=== PATIENT | male | born 1935 | race American Indian/Alaskan Native ===

== ENCOUNTER 2017-06-11 11:43 | Day surgery (SDC) | payer MEDICARE ==
[2017-06-11 13:14] LABS: Basophils % (Auto) 0.8 % (0.0-1.8); Eosinophils % (Auto) 3.3 % (0.0-4.3); Hematocrit 37.6 % (35.5-45.6); Hemoglobin 12.6 gm/dl (11.8-15.2); Mean Corpuscular HGB Conc 34 % (32-34); Mean Corpuscular Hemoglobin 34 pg (28-32); Mean Corpuscular Volume 101 fl (84-94); Platelet Count 152 K/mm3 (140-440); Red Blood Count 3.71 M/mm3 (3.65-5.03); Red Cell Distribution Width 13.9 % (13.2-15.2); White Blood Count 5.3 K/mm3 (4.5-11.0)
[2017-06-11 13:26] LABS: INR 1.15 (0.87-1.13)
[2017-06-11 13:27] LABS: Partial Thromboplastin Time 34.1 Sec. (24.2-36.6)
[2017-06-11 14:13] LABS: Anion Gap 18 mmol/L; Blood Urea Nitrogen 14 mg/dL (9-20); Calcium 9.3 mg/dL (8.4-10.2); Carbon Dioxide 28 mmol/L (22-30); Chloride 101.6 mmol/L (98-107); Glucose 94 mg/dL (75-100); Potassium 3.5 mmol/L (3.6-5.0); Sodium 144 mmol/L (137-145)
--- NOTE | 2017-06-11 14:54 | Short Stay Summary ---
Short Stay Documentation Date of service: 06/11/17 - History H&P: obtained from office - Allergies and Medications Current Medications: Allergies No Known Allergies Allergy (Unverified 05/26/15 16:34) Home Medications Medication Instructions Recorded Confirmed Last Taken Type Acyclovir [Zovirax Tab] 800 mg PO QDAY 05/26/15 06/11/17 06/10/17 History AtorvaSTATin [Lipitor] 80 mg PO QHS 05/26/15 06/11/17 06/10/17 History Carvedilol [Coreg] 12.5 mg PO BID 05/26/15 06/11/17 06/10/17 History Donepezil HCl 5 mg PO QHS 05/26/15 06/11/17 06/10/17 History Ergocalciferol (Vitamin D2) 50,000 unit PO QWEEK 05/26/15 06/11/17 06/06/17 History [Vitamin D2] Memantine HCl [Namenda Xr] 20 mg PO BID 05/26/15 06/11/17 06/10/17 History Ranitidine HCl [Zantac 150 MG TAB] 150 mg PO BID 05/26/15 06/11/17 06/10/17 History Aspirin EC [Aspirin Enteric Coated 81 mg PO QDAY #30 tablet.dr 05/27/1506/10/17 Rx TAB] Allopurinol 100 mg PO QDAY 06/11/17 06/11/17 06/10/17 History Clopidogrel Bisulfate [Plavix] 75 mg PO QDAY 06/11/17 06/11/17 06/10/17 History Furosemide [Lasix TAB] 20 mg PO QDAY 06/11/17 06/11/17 06/10/17 History ISOSORBIDE MONOnitrate 120 mg PO QDAY 06/11/17 06/11/17 06/10/17 History Losartan [Cozaar] 50 mg PO BID 06/11/17 06/11/17 06/10/17 History - Brief post op/procedure progress note Date of procedure: 06/11/17 Pre-op diagnosis: CMP Post-op diagnosis: same Procedure: RUE venogram - see report Anesthesia: local Estimated blood loss: none Condition: stable - Disposition Condition at discharge: Stable Disposition: DC-01 TO HOME OR SELFCARE - Discharge Diagnoses (1) Cardiomyopathy Status: Chronic Qualifiers: Cardiomyopathy type: C (2) History of cardiac pacemaker in situ Status: Chronic (3) Nonsustained ventricular tachycardia Status: Acute (4) CAD (coronary artery disease) Status: Chronic Qualifiers: Coronary Disease-Associated Artery/Lesion type: C [place] vs. transplanted heart: N Associated angina: A (5) HLD (hyperlipidemia) Status: Chronic Qualifiers: Hyperlipidemia type: H (6) HTN (hypertension) Status: Chronic Qualifiers: Hypertension type: H Short Stay Discharge Plan Activity: advance as tolerated Diet: low fat, low cholesterol, low salt Wound: open to air, keep clean and dry Follow up with: STEFANI WILKINSON MD [Staff Physician] - 7 Days
[2017-06-11 15:13] VITALS: BP 141/79
--- NOTE | 2017-06-11 20:50 | Cardiac Catherization Report ---
label paster procedure. TYPE OF PROCEDURE: Right upper extremity venogram. DESCRIPTION OF PROCEDURE: The patient was brought to the tender labor. A 5 mL of contrast was given to the patient in the right upper extremity. 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 Contrast solution was noted to go retrograde through the right internal jugular. There was no obvious contrast solution noted in the right atrium. COMPLICATIONS: None. ESTIMATED BLOOD LOSS: None. 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 There is a dual chamber permanent pacemaker currently in place. JOB# [id number] MMW/NTS
== END 2017-06-11 15:20 | disposition home or self-care (01) ==
LOC: CATHLABREC 11:43
PROVIDERS: ATTEND Internal Medicine Cardiovascular Disease
DX: I82.890 Acute embolism and thrombosis of other specified veins (principal); I25.10 Atherosclerotic heart disease of native coronary artery without angina pectoris; I10 Essential (primary) hypertension; E78.5 Hyperlipidemia, unspecified; I42.9 Cardiomyopathy, unspecified; Z87.891 Personal history of nicotine dependence; Z79.899 Other long term (current) drug therapy; Z79.82 Long term (current) use of aspirin; Z79.01 Long term (current) use of anticoagulants; Z95.0 Presence of cardiac pacemaker; Z95.5 Presence of coronary angioplasty implant and graft; Z98.890 Other specified postprocedural states
CPT/HCPCS: 36415; 75820; 80048; 85025; 85610; 85730; Q9967